=== PATIENT | female | born 1940 | race Caucasian/White ===

== ENCOUNTER 2016-09-07 09:51 | Outpatient (CLI) | payer MEDICARE, OTHER | END 2016-09-07 09:52 | disposition home or self-care (01) | DX: R06.02 Shortness of breath (principal) ==

== ENCOUNTER 2017-11-25 09:59 | Outpatient (CLI) | payer MEDICARE, OTHER | END 2017-11-25 10:00 | disposition home or self-care (01) | LOC: RT 09:59 | PROVIDERS: ATTEND Internal Medicine Cardiovascular Disease | DX: R06.00 Dyspnea, unspecified (principal) | CPT/HCPCS: 93005 ==

== ENCOUNTER 2019-03-23 08:55 | Outpatient (CLI) | payer MEDICARE, OTHER | END 2019-03-23 08:56 | disposition home or self-care (01) | LOC: LAB 08:55 | PROVIDERS: ATTEND Internal Medicine Cardiovascular Disease | DX: Z53.9 Procedure and treatment not carried out, unspecified reason (principal) ==

== ENCOUNTER 2019-03-25 08:26 | Outpatient (CLI) | payer MEDICARE, OTHER ==
[2019-03-25 09:09] LABS: CHOLESTEROL 276 mg/dL; HDL CHOLESTEROL 91 mg/dL; LDL CHOLESTEROL,CALCULATED 176 mg/dL; LDL/HDL RATIO 1.9 (<4.4); VLDL CHOLESTEROL 9 mg/dL
== END 2019-03-25 08:27 | disposition home or self-care (01) ==
LOC: LAB 08:26
PROVIDERS: ATTEND Internal Medicine Cardiovascular Disease
DX: Z00.00 Encounter for general adult medical examination without abnormal findings (principal)
CPT/HCPCS: 36415; 80061; 83721

== ENCOUNTER 2020-02-23 14:02 | Outpatient (CLI) | payer MEDICARE, OTHER ==
[2020-02-23 14:13] LABS: BASOPHILS # (AUTO) 0.1 10^3/uL (0.0-0.1); BASOPHILS % (AUTO) 1.2 %; EOSINOPHILS # (AUTO) 0.2 10^3/uL (0.0-0.7); EOSINOPHILS % (AUTO) 2.7 %; HGB - HEMOGLOBIN 13.4 g/dL (12.0-16.0); LYMPHOCYTES # (AUTO) 1.6 10^3/uL (1.5-3.5); LYMPHOCYTES % (AUTO) 21.7 %; MEAN CORPUSCULAR HEMOGLOBIN 30.6 pg (27.0-31.0); MEAN CORPUSCULAR HGB CONC 33.5 g/dL (32.0-36.0); MEAN CORPUSCULAR VOLUME 91.3 fL (81.0-99.0); MEAN PLATELET VOLUME 9.6 fL (7.9-10.8); MONOCYTES # (AUTO) 0.6 10^3/uL (0.0-1.0); MONOCYTES % (AUTO) 8.3 %; NEUTROPHILS # (AUTO) 4.9 10^3/uL (1.5-6.6); NEUTROPHILS % (AUTO) 65.8 %; PLT - PLATELET COUNT 273 10^3/uL (130-450); RED BLOOD COUNT 4.38 10^6/uL (4.20-5.40); RED CELL DISTRIBUTION WIDTH 12.7 % (12.0-15.0); WHITE BLOOD COUNT 7.5 x10^3/uL (4.8-10.8)
[2020-02-23 14:22] LABS: CALCIUM 9.2 mg/dL (8.5-10.3); CREATININE 0.8 mg/dL (0.4-1.0)
[2020-02-23 14:39] LABS: BILIRUBIN,URINE NEGATIVE (NEGATIVE); GLUCOSE, URINE (UA) NEGATIVE (NEGATIVE); KETONES,URINE (UA) NEGATIVE (NEGATIVE); LEUKOCYTE ESTERASE, URINE SMALL (NEGATIVE); NITRITE,URINE NEGATIVE (NEGATIVE); OCCULT BLOOD,URINE NEGATIVE (NEGATIVE); PROTEIN,URINE NEGATIVE (NEGATIVE); UROBILINOGEN,URINE 1 (NORMAL) E.U./dL (NORMAL)
[2020-02-23 14:42] LABS: CLARITY,URINE CLEAR (CLEAR)
[2020-02-23 14:49] LABS: RBC,URINE 0-5 /HPF (0-5)
[2020-02-23 14:50] LABS: BACTERIA,URINE Rare /HPF (None Seen); SQUAMOUS EPITHELIAL CELL,UR FEW Squamous (<= Few)
[2020-02-23 19:59] LABS: HEMOGLOBIN A1c% 5.5 % (4.27-6.07)
== END 2020-02-23 14:03 | disposition home or self-care (01) ==
LOC: LAB 14:02
PROVIDERS: ATTEND Orthopaedic Surgery
DX: Z01.812 Encounter for preprocedural laboratory examination (principal); R73.9 Hyperglycemia, unspecified; Z01.818 Encounter for other preprocedural examination; I49.1 Atrial premature depolarization; N39.0 Urinary tract infection, site not specified
CPT/HCPCS: 36415; 80048; 81001; 83036; 85025; 87086; 93005

== ENCOUNTER 2020-06-26 14:36 | Outpatient (CLI) | payer MEDICARE, OTHER ==
--- NOTE | 2020-06-26 20:23 | XRAY Report ---
PROCEDURE: Chest 2 View X-Ray INDICATIONS: RIB PAIN GROUND LEVEL FALL TECHNIQUE: 2 view(s) of the chest. COMPARISON: None. FINDINGS: Surgical changes and devices: None. Lungs and pleura: No pleural effusions or pneumothorax. Mild hyperaeration and flattening of the he midiaphragms. Chronic appearing interstitial prominence. No focal consolidations. Lungs are otherwise clear. Mediastinum: Mediastinal contours are normal. Heart size is normal. Bones and chest wall: No suspicious bony abnormalities. Soft tissues appear unremarkable. No acute rib fractures seen. Specifically, no acute rib fractures near the BB skin marker denoting area of pa in. Multilevel thoracic spondylosis. No acute compression fractures. Diffuse osteopenia. IMPRESSION: 1. Chest without acute cardiopulmonary abnormalities. Findings suggestive of chronic obstructive pulm onary physiology. 2. No acute fractures identified. Specifically, no rib fractures at the patient directed area of pain as noted by skin BB marker. There is persistent clinical concern for rib fracture, consider dedicate d rib series for further evaluation. Reviewed by: Naresh Nelson MD on 06/26/2020 7:22 PM [facility] Approved by: Naresh Nelson MD on 06/26/2020 7:22 PM [place] Station ID: [id number]
== END 2020-06-26 14:37 | disposition home or self-care (01) ==
LOC: DI 14:36
PROVIDERS: ATTEND Physician Assistant Medical
DX: R07.81 Pleurodynia (principal); W01.0XXA Fall on same level from slipping, tripping and stumbling without subsequent striking against object, initial encounter